=== PATIENT | female | born 1975 | race Caucasian/White ===

== ENCOUNTER 2021-06-24 15:38 | Emergency (ER) | payer MEDICAID, OTHER ==
[~2021-06-24] VITALS: Ht 167.6 cm; Wt 59.6 kg
[2021-06-24] MEDS ORDERED: MIRE1IUD IU (15:45)
[2021-06-24 20:09] LABS: BASO % 0.7 % (0.0-1.0); HEMOGLOBIN 13.8 g/dl (12.0-15.5); LYMPH # 0.7 10^3/uL (1.5-5.0); LYMPH % 22.6 % (24.0-44.0); MEAN CORPUSCULAR HEMOGLOBIN 30.6 pg (27.0-33.0); MEAN CORPUSCULAR HGB CONC 33.7 g/dl (32.0-36.5); MEAN CORPUSCULAR VOLUME 90.9 fl (80.0-96.0); MONO # 0.6 10^3/uL (0.0-0.8); MONO % 18.7 % (2.0-8.0); NEUTROPHILS # 1.8 10^3/uL (1.5-8.5); PLATELET COUNT, AUTOMATED 242 10^3/uL (150-450); RED BLOOD COUNT 4.51 10^6/uL (4.00-5.40); WHITE BLOOD COUNT 3.1 10^3/uL (4.0-10.0)
[2021-06-24 20:27] LABS: BLOOD UREA NITROGEN 12 MG/DL (7-18); CALCIUM LEVEL 8.9 MG/DL (8.5-10.1); CARBON DIOXIDE LEVEL 24 MEQ/L (21-32); CHLORIDE LEVEL 107 MEQ/L (98-107); CREATININE FOR GFR 0.72 MG/DL (0.55-1.30); GLOMERULAR FILTRATION RATE > 60.0 (>58); GLUCOSE, FASTING 88 MG/DL (70-100); HCG, SERUM QUALITATIVE NEGATIVE (NEGATIVE); POTASSIUM SERUM 3.5 MEQ/L (3.5-5.1); SODIUM LEVEL 139 MEQ/L (136-145)
--- OUTSIDE RECORDS SUMMARY | 2021-06-24 20:52 | CCD ---
Author Author [facility] Organization [facility] Address Unknown Phone Unavailable Support Name Relationship Address Phone ORA LICONA Next Of Kin [place], [place] [id number] JOSÉ [place] [address] Re-disclosure Warning The records that you are about to access may contain information from federally-assisted alcohol or drug abuse programs. If such information is present, then the following federally mandated warning applies: This information has been disclosed to you from records protected by federal confidentiality rules (42 CFR part 2). The federal rules prohibit you from making any further disclosure of this information unless further disclosure is expressly permitted by the written consent of the person to whom it pertains or as otherwise permitted by 42 CFR part 2. A general authorization for the release of medical or other information is NOT sufficient for this purpose. The Federal rules restrict any use of the information to criminally investigate or prosecute any alcohol or drug abuse patient.The records that you are about to access may contain highly sensitive health information, the redisclosure of which is protected by Article 27-F of the [facility] Public Health law. If you continue you may have access to information: Regarding HIV / AIDS; Provided by facilities licensed or operated by the [facility] Office of Mental Health; or Provided by the [facility] Office for People With Developmental Disabilities. If such information is present, then the following [facility] mandated warning applies: This information has been disclosed to you from confidential records which are protected by state law. State law prohibits you from making any further disclosure of this information without the specific written consent of the person to whom it pertains, or as otherwise permitted by law. Any unauthorized further disclosure in violation of state law may result in a fine or mcc sentence or both. A general authorization for the release of medical or other information is NOT sufficient authorization for further disc losure. Medications No Information Insurance Providers Payer name Policy type / Coverage type Policy ID Covered democrat ID Covered democrat's relationship to campos Policy [place] Plan Information [facility] MEDICAID [id number] SP [id number] [facility] [id number] SP [id number] Problems, Conditions, and Diagnoses No Information Surgeries/Procedures No Information Results No Information Social History No Information
[2021-06-24 23:06] VITALS: BP 110/58
--- NOTE | 2021-06-24 23:07 | REPVR ---
PROCEDURE INFORMATION: Exam: US Nonobstetric Pelvis; Complete Exam date and time: 06/24/2021 9:23 PM Age: 46 years old Clinical indication: Pelvic pain; Additional info: Pelvic pain/hx herpes TECHNIQUE: Imaging protocol: Transabdominal pelvic nonobstetric ultrasound. Complete exam. Real time ultrasound with image documentation. COMPARISON: No relevant prior studies available. FINDINGS: Uterus: 10.4 cm by 4.7 x 5.7 cm uterus with endometrium measuring 7 mm. 7.1 cm posterior fibroid. Intrauterine device appears appropriately positioned. Right ovary/adnexa: 4.1 x 2.3 x 3 cm right ovary with normal follicular architecture and blood flow. Left ovary/adnexa: 3.5 x 2.2 x 3.3 cm left ovary with a small 2 x 1.6 x 2.1 cm, physiologic cyst/follicle. otherwise, normal follicular architecture and blood flow. Intraperitoneal space: No intraperitoneal fluid. Urinary bladder: Unremarkable 5 x 3.1 x 9.3 cm bladder. IMPRESSION: 1. 3.5 x 2.2 x 3.3 cm left ovary with a small 2 x 1.6 x 2.1 cm, physiologic cyst/follicle. otherwise, normal follicular architecture and blood flow. 2. Intrauterine device appears appropriately positioned. Electronically signed by: Nnamdi Mccray On 06/24/2021 23:06:32 PM
[2021-06-24 23:10] LABS: GC DNA AMPLIFICATION NEGATIVE (NEGATIVE)
[2021-06-24] MEDS ORDERED: METR0.7533 TOP (23:24)
[2021-06-24] MEDS ORDERED: DIFL150T PO (23:25)
== END 2021-06-24 23:44 | disposition home or self-care (01) ==
LOC: M ED 15:38
DX: R10.2 Pelvic and perineal pain (principal); B37.9 Candidiasis, unspecified; N76.0 Acute vaginitis; N83.02 Follicular cyst of left ovary; U07.1 COVID-19; Z79.899 Other long term (current) drug therapy

== ENCOUNTER → 2023-03-19 | Outpatient (CLI) | payer OTHER ==
[~2023-03-19] MED LIST: DIFL150T PO; METR0.7526 TOP; MIRE1IUD IU
[2023-03-19 17:35] LABS: BASO % 0.5 % (0.0-1.0); EOS # 0.1 10^3/uL (0.0-0.5); EOS % 1.4 % (0.0-3.0); HEMATOCRIT 42.5 % (36.0-47.0); HEMOGLOBIN 14.1 g/dl (12.0-15.5); MEAN CORPUSCULAR HEMOGLOBIN 29.9 pg (27.0-33.0); MEAN CORPUSCULAR HGB CONC 33.2 g/dl (32.0-36.5); MONO # 0.5 10^3/uL (0.0-0.8); MONO % 6.3 % (2.0-8.0); NEUTROPHILS # 4.9 10^3/uL (1.5-8.5); NEUTROPHILS % 56.5 % (36.0-66.0); PLATELET COUNT, AUTOMATED 305 10^3/uL (150-450); RED BLOOD COUNT 4.72 10^6/uL (4.00-5.40); WHITE BLOOD COUNT 8.6 10^3/uL (4.0-10.0)
[2023-03-19 18:03] LABS: ALBUMIN 3.8 G/DL (3.2-5.2); ALKALINE PHOSPHATASE 66 U/L (46-116); ALT/SGPT 12 U/L (7.0-40); AST/SGOT 9 U/L (<34); BILIRUBIN,TOTAL 0.5 MG/DL (0.3-1.2); BLOOD UREA NITROGEN 18 MG/DL (9-23); CALCIUM LEVEL 9.1 MG/DL (8.5-10.1); CARBON DIOXIDE LEVEL 27 MMOL/L (20-31); CHLORIDE LEVEL 107 MMOL/L (98-107); CHOLESTEROL LEVEL 179 MG/DL (<200); CHOLESTEROL RISK RATIO 2.33 (<5); CREATININE FOR GFR 1.01 MG/DL (0.55-1.30); GLOMERULAR FILTRATION RATE > 60.0 (>58); GLUCOSE, FASTING 90 MG/DL (60-100); HDL CHOLESTEROL 76.8 MG/DL (>40); NON-HDL-C 102.2 MG/DL; POTASSIUM SERUM 3.7 MMOL/L (3.5-5.1); SODIUM LEVEL 141 MMOL/L (136-145); TOTAL PROTEIN 6.7 G/DL (5.7-8.2); TRIGLYCERIDES LEVEL 86 MG/DL (<150)
[2023-03-19 18:06] LABS: FREE T4 1.09 NG/DL (0.89-1.76)
[2023-03-19 18:07] LABS: THYROID STIMULATING HORMONE 0.725 uIU/ML (0.55-4.78)
== END ==
LOC: M PLALAB 16:08
PROVIDERS: ATTEND Nurse Practitioner Family
DX: Z13.220 Encounter for screening for lipoid disorders (principal); R53.83 Other fatigue

== ENCOUNTER → 2023-06-03 | Outpatient (CLI) | payer OTHER | LOC: M WHC 06:44 | PROVIDERS: ATTEND Nurse Practitioner Family | DX: Z12.31 Encounter for screening mammogram for malignant neoplasm of breast (principal) ==

== ENCOUNTER 2023-07-28 01:42 | Emergency (ER) | payer OTHER ==
[~2023-07-28] VITALS: Ht 167.6 cm; Wt 60.1 kg
[2023-07-28 03:15] LABS: BASO % 0.2 % (0.0-1.0); EOS % 0.2 % (0.0-3.0); HEMATOCRIT 43.1 % (36.0-47.0); HEMOGLOBIN 14.7 g/dl (12.0-15.5); LYMPH # 1.2 10^3/uL (1.5-5.0); LYMPH % 7.3 % (24.0-44.0); MEAN CORPUSCULAR HEMOGLOBIN 30.6 pg (27.0-33.0); MEAN CORPUSCULAR HGB CONC 34.1 g/dl (32.0-36.5); MEAN CORPUSCULAR VOLUME 89.8 fl (80.0-96.0); MONO # 1.1 10^3/uL (0.0-0.8); MONO % 6.4 % (2.0-8.0); NEUTROPHILS # 14.1 10^3/uL (1.5-8.5); NEUTROPHILS % 85.4 % (36.0-66.0); PLATELET COUNT, AUTOMATED 253 10^3/uL (150-450); WHITE BLOOD COUNT 16.6 10^3/uL (4.0-10.0)
[2023-07-28 03:38] LABS: ALBUMIN 3.9 G/DL (3.2-5.2); ALKALINE PHOSPHATASE 75 U/L (46-116); ALT/SGPT 15 U/L (7.0-40); AST/SGOT 15 U/L (<34); BILIRUBIN,TOTAL 0.5 MG/DL (0.3-1.2); BLOOD UREA NITROGEN 10 MG/DL (9-23); CALCIUM LEVEL 9.3 MG/DL (8.5-10.1); CARBON DIOXIDE LEVEL 25 MMOL/L (20-31); CHLORIDE LEVEL 105 MMOL/L (98-107); CREATININE FOR GFR 0.64 MG/DL (0.55-1.30); GLOMERULAR FILTRATION RATE > 60.0 (>58); GLUCOSE, FASTING 121 MG/DL (60-100); POTASSIUM SERUM 4.3 MMOL/L (3.5-5.1); SODIUM LEVEL 137 MMOL/L (136-145)
[2023-07-28 05:23] VITALS: TEMP 98; O2SAT 100
[2023-07-28] MEDS ORDERED: KETOROLAC 60MG 2ML VIAL IM ONE (06:40)
[2023-07-28 07:17] VITALS: BP 107/51
== END 2023-07-28 07:57 | disposition home or self-care (01) ==
LOC: M ED 01:42
DX: N93.9 Abnormal uterine and vaginal bleeding, unspecified (principal); F10.10 Alcohol abuse, uncomplicated; Z87.891 Personal history of nicotine dependence; Z79.899 Other long term (current) drug therapy; Z79.2 Long term (current) use of antibiotics
CPT/HCPCS: 80053; 85025; 86850; 86900; 86901; 96372; 99283; J1885

== ENCOUNTER → 2023-08-12 | Outpatient (CLI) | payer OTHER | LOC: M WHC 08:23 | PROVIDERS: ATTEND Nurse Practitioner Family | DX: R10.2 Pelvic and perineal pain (principal) ==

== ENCOUNTER → 2023-10-13 | Outpatient (CLI) | payer OTHER | LOC: M WHC 07:55 | PROVIDERS: ATTEND Nurse Practitioner Family | DX: N83.202 Unspecified ovarian cyst, left side (principal); N83.201 Unspecified ovarian cyst, right side ==

== ENCOUNTER 2023-12-22 09:35 | Day surgery (SDC) | payer OTHER ==
[~2023-12-22] VITALS: Ht 170.2 cm; Wt 60.5 kg
[~2023-12-22 09:35] MED LIST changes: +ACETAMINOPHEN 1000MG 100ML IV BAG As Ordered ONE; +GINK60CA2 PO; +KETOROLAC 60MG 2ML VIAL As Ordered ONE; +LIDOCAINE 2% 100MG/5ML SDV (FOR ANES.) As Ordered ONE; +MIDAZOLAM INJ 2MG/2ML VIAL As Ordered ONE; +OMEG10002 PO; +ONDANSETRON 4MG 2ML VIAL As Ordered ONE; +fentaNYL 100 MCG/2 ML INJECTION As Ordered ONE; +propofoL 200 MG/20 ML VIAL As Ordered ONE
[2023-12-22] MEDS: LIDOCAINE 1% SDV 30ML VIAL As Ordered ONE (11:30)
[2023-12-22] MEDS: ceFAZolin SOD 2 GM in IV 1 EA IV ONE (11:45)
[2023-12-22] MEDS: LIDOCAINE W/EPINEPHRINE 1% 20ML VIAL As Ordered ONE (12:22)
[2023-12-22 13:05] VITALS: BP 104/59; TEMP 97.2; O2SAT 99
== END 2023-12-22 13:11 | disposition home or self-care (01) ==
LOC: M SDC 09:35
PROVIDERS: ATTEND Surgery
DX: D03.62 Melanoma in situ of left upper limb, including shoulder (principal); Z87.891 Personal history of nicotine dependence
CPT/HCPCS: 11606; 12032; 81025; 88307; J0131; J0690; J1100; J1885; J2250; J2405; J3010

== ENCOUNTER → 2024-03-23 | Outpatient (CLI) | payer OTHER ==
[~2024-03-23] MED LIST changes: -ACETAMINOPHEN 1000MG 100ML IV BAG As Ordered ONE; -KETOROLAC 60MG 2ML VIAL As Ordered ONE; -LIDOCAINE 2% 100MG/5ML SDV (FOR ANES.) As Ordered ONE; -MIDAZOLAM INJ 2MG/2ML VIAL As Ordered ONE; -ONDANSETRON 4MG 2ML VIAL As Ordered ONE; -fentaNYL 100 MCG/2 ML INJECTION As Ordered ONE; -propofoL 200 MG/20 ML VIAL As Ordered ONE
[2024-03-23 10:05] LABS: BASO # 0.1 10^3/uL (0.0-0.2); BASO % 0.7 % (0.0-1.0); EOS # 0.1 10^3/uL (0.0-0.5); EOS % 1.7 % (0.0-3.0); HEMATOCRIT 41.1 % (36.0-47.0); HEMOGLOBIN 13.9 g/dl (12.0-15.5); LYMPH # 2.4 10^3/uL (1.5-5.0); LYMPH % 31.9 % (24.0-44.0); MEAN CORPUSCULAR HEMOGLOBIN 30.8 pg (27.0-33.0); MEAN CORPUSCULAR HGB CONC 33.8 g/dl (32.0-36.5); MEAN CORPUSCULAR VOLUME 90.9 fl (80.0-96.0); MONO # 0.6 10^3/uL (0.0-0.8); MONO % 7.7 % (2.0-8.0); NEUTROPHILS # 4.4 10^3/uL (1.5-8.5); NEUTROPHILS % 57.9 % (36.0-66.0); PLATELET COUNT, AUTOMATED 286 10^3/uL (150-450); RED BLOOD COUNT 4.52 10^6/uL (4.00-5.40); WHITE BLOOD COUNT 7.6 10^3/uL (4.0-10.0)
[2024-03-23 10:22] LABS: ALBUMIN 3.5 G/DL (3.2-5.2); ALKALINE PHOSPHATASE 68 U/L (46-116); ALT/SGPT 13 U/L (7.0-40); AST/SGOT 10 U/L (<34); BILIRUBIN,TOTAL 0.5 MG/DL (0.3-1.2); BLOOD UREA NITROGEN 16 MG/DL (9-23); CALCIUM LEVEL 8.9 MG/DL (8.5-10.1); CARBON DIOXIDE LEVEL 26 MMOL/L (20-31); CHLORIDE LEVEL 109 MMOL/L (98-107); CHOLESTEROL LEVEL 167 MG/DL (<200); CHOLESTEROL RISK RATIO 2.43 (<5); CREATININE FOR GFR 0.67 MG/DL (0.55-1.30); FREE T4 1.09 NG/DL (0.89-1.76); GLOMERULAR FILTRATION RATE > 60.0 (>58); GLUCOSE, FASTING 93 MG/DL (60-100); HDL CHOLESTEROL 68.7 MG/DL (>40); LDL CHOLESTEROL 86.5 MG/DL (<100); NON-HDL-C 98.3 MG/DL; POTASSIUM SERUM 4.3 MMOL/L (3.5-5.1); SODIUM LEVEL 140 MMOL/L (136-145); THYROID STIMULATING HORMONE 1.009 uIU/ML (0.55-4.78); TOTAL PROTEIN 6.6 G/DL (5.7-8.2); TRIGLYCERIDES LEVEL 59 MG/DL (<150)
== END ==
LOC: M PLALAB 08:11
PROVIDERS: ATTEND Nurse Practitioner Family
DX: Z00.00 Encounter for general adult medical examination without abnormal findings (principal); R53.83 Other fatigue; Z13.220 Encounter for screening for lipoid disorders

== ENCOUNTER 2024-11-17 09:14 | Day surgery (SDC) | payer OTHER ==
[~2024-11-17] VITALS: Ht 167.6 cm; Wt 57.3 kg
[~2024-11-17 09:14] MED LIST changes: +LIDOCAINE 2% 100MG/5ML SDV (FOR ANES.) As Ordered ONE; +propofoL 200 MG/20 ML VIAL As Ordered ONE
[2024-11-17] MEDS ORDERED: ePHEDrine SULFATE 25 MG/5 ML(5MG/ML) SYRINGE As Ordered ONE (10:50)
[2024-11-17 10:55] VITALS: TEMP 97.3
[2024-11-17 11:10] VITALS: BP 95/52; O2SAT 100
== END 2024-11-17 11:15 | disposition home or self-care (01) ==
LOC: M OPP 09:14
PROVIDERS: ATTEND Surgery
DX: Z12.11 Encounter for screening for malignant neoplasm of colon (principal); Z87.891 Personal history of nicotine dependence

== ENCOUNTER → 2025-04-18 | Outpatient (REF) | payer OTHER ==
[~2025-04-18] MED LIST changes: -LIDOCAINE 2% 100MG/5ML SDV (FOR ANES.) As Ordered ONE; -propofoL 200 MG/20 ML VIAL As Ordered ONE
[2025-04-18 12:35] LABS: BASO # 0.0 10^3/uL (0.0-0.2); BASO % 0.6 % (0.0-1.0); EOS # 0.1 10^3/uL (0.0-0.5); EOS % 2.6 % (0.0-3.0); LYMPH # 2.3 10^3/uL (1.5-5.0); LYMPH % 43.0 % (24.0-44.0); MONO # 0.4 10^3/uL (0.0-0.8); MONO % 7.8 % (2.0-8.0); NEUTROPHILS # 2.5 10^3/uL (1.5-8.5); NEUTROPHILS % 45.8 % (36.0-66.0); PLATELET COUNT, AUTOMATED 282 10^3/uL (150-450)
[2025-04-18 12:37] LABS: ALT/SGPT 16 U/L (7.0-40); AST/SGOT 14 U/L (<34); CALCIUM LEVEL 8.7 MG/DL (8.5-10.1); CARBON DIOXIDE LEVEL 29 MMOL/L (20-31); CHLORIDE LEVEL 108 MMOL/L (98-107); CHOLESTEROL LEVEL 180 MG/DL (<200); CHOLESTEROL RISK RATIO 2.16 (<5); CREATININE FOR GFR 0.69 MG/DL (0.55-1.30); GLOMERULAR FILTRATION RATE > 90.0 (>51); LDL CHOLESTEROL 81.4 MG/DL (<100); NON-HDL-C 96.8 MG/DL; POTASSIUM SERUM 3.9 MMOL/L (3.5-5.1); SODIUM LEVEL 139 MMOL/L (136-145); TRIGLYCERIDES LEVEL 77 MG/DL (<150)
[2025-04-18 12:39] LABS: FREE T4 1.26 NG/DL (0.89-1.76)
== END ==
LOC: M SFHCCLAY 08:07
PROVIDERS: ATTEND Nurse Practitioner Family
DX: Z00.00 Encounter for general adult medical examination without abnormal findings (principal); R53.83 Other fatigue; Z13.220 Encounter for screening for lipoid disorders

== ENCOUNTER → 2025-05-05 | Outpatient (CLI) | payer OTHER | LOC: M WHC 07:09 | PROVIDERS: ATTEND Nurse Practitioner Family | DX: D25.1 Intramural leiomyoma of uterus (principal); N83.201 Unspecified ovarian cyst, right side ==

== ENCOUNTER → 2025-05-26 | Outpatient (REF) | payer OTHER ==
[2025-05-26 14:30] LABS: CA 125 12.0 U/ML (<35); CA19-9 TUMOR MARKER,CARBOHYDRA 5.2 U/ML (<35.0)
== END ==
LOC: M SFHCCLAY 08:06
PROVIDERS: ATTEND Nurse Practitioner Family
DX: N83.291 Other ovarian cyst, right side (principal)

== ENCOUNTER → 2025-07-04 | Outpatient (CLI) | payer OTHER | LOC: M WHC 07:36 | PROVIDERS: ATTEND Nurse Practitioner Family | DX: D25.9 Leiomyoma of uterus, unspecified (principal); Z87.42 Personal history of other diseases of the female genital tract ==